=== PATIENT | female | born 1990 | race African-American/Black ===

== ENCOUNTER 2020-03-19 07:11 | Emergency (ER) | payer MEDICAID ==
[~2020-03-19] VITALS: Ht 165.1 cm; Wt 87.1 kg
[2020-03-19 07:11] VITALS: BP_SYST 131
--- NOTE | 2020-03-19 07:11 | NUR ---
TAKEN INTO OUTSIDE TRIAGE TENT, TRIAGED AND WILL ASSUME CARE
--- NOTE | 2020-03-19 07:15 | NUR ---
PT STATES FOR LAST 2 DAYS SHE HAS BEEN HAVING UPPER ABDOMINAL PAIN AFTER EATING. SEEN AT URGENT CARE, EKG AND LABS DONE, ALL NEGATIVE. PT IN NO DISTRESS, PT SPEAKING FULL SENTENCES. PT STATES SHE IS BURPING MORE THAN NORMAL. PT STATES SHE CAN'T BREATHE WELL WHEN LAYING FLAT.
--- NOTE | 2020-03-19 07:45 | NUR ---
DR VENCES OUT TO TENT FOR EVALUATION
--- NOTE | 2020-03-19 07:58 | NUR ---
Patient given written and verbal discharge instructions and verbalizes understanding. ER MD discussed with patient the results and treatment provided. Patient in stable condition. ID arm band removed. Rx of PRILOSEC given. Patient educated on pain management and to follow up with PMD. Pain Scale 0/10. Opportunity for questions provided and answered. Medication side effect fact sheet provided.
== END 2020-03-19 07:57 | disposition home or self-care (01) ==
LOC: SED 07:11
DX: K21.9 Gastro-esophageal reflux disease without esophagitis (principal); R07.89 Other chest pain
CPT/HCPCS: 99283